=== PATIENT | male | born 1970 | race Caucasian/White ===

== ENCOUNTER → 2021-01-07 | Day surgery (SDC) | payer BC ==
[~2021-01-07] MED LIST: Glycopyrrolate 0.2 MG/ML SDV ONE; Ketamine 200 MG/20 ML MDV ONE; Phenylephrine 1% 10 MG/ML SDV ONE; Propofol 200 MG/20 ML SDV ONE; fentaNYL 100 MCG/2 ML SDV ONE
[2021-01-07] MEDS: Lactated Ringers 1,000 ML IV SCH (08:39)
--- NOTE | 2021-01-11 11:35 | OR ---
DATE OF OPERATION: 01/07/2021 PREOPERATIVE DIAGNOSIS: SCREENING COLONOSCOPY. POSTOPERATIVE DIAGNOSIS: SCREENING COLONOSCOPY. SURGEON: Mahendra Flowers MD PROCEDURE: FULL-LENGTH COLONOSCOPY. ANESTHESIA: MAC. COMPLICATIONS: None. SPECIMEN: None. FINDINGS: Normal full-length colonoscopy. RECOMMENDATIONS: Followup colonoscopy in 10 years. INDICATIONS: The patient was seen for routine physical. He is due for a screening colonoscopy due to his age. DESCRIPTION OF PROCEDURE: The patient was prepped and draped, placed in the left lateral decubitus position. A lubricated Olympus colonoscope was inserted and easily advanced to the cecum. Direct visualization of the ileocecal valve and appendiceal orifice was accomplished. Bowel prep was adequate. Upon withdrawal of the scope throughout the entire length of the colon, I could find no polyps, masses, ulceration, or bleeding sites. No vascular abnormalities or signs of colitis. The rectal vault was benign. Retroflexion of the scope in the rectum showed no anal lesions. Air was suctioned and scope removed without complication. MAXWELL/LUKAS /[id number]
== END ==
LOC: CC.SDS 08:20
PROVIDERS: ATTEND Family Medicine
DX: Z12.11 Encounter for screening for malignant neoplasm of colon (principal); N40.0 Benign prostatic hyperplasia without lower urinary tract symptoms; F41.8 Other specified anxiety disorders; G62.9 Polyneuropathy, unspecified; Z79.82 Long term (current) use of aspirin; Z79.899 Other long term (current) drug therapy; Z87.891 Personal history of nicotine dependence
CPT/HCPCS: 00812; J2370; J2704; J3010; J3490; J7120